=== PATIENT | male | born 2000 | race African-American/Black ===

== ENCOUNTER 2021-02-12 22:21 | Emergency (ER) | payer OTHER ==
[~2021-02-12] VITALS: Ht 190.5 cm; Wt 92.1 kg
== END 2021-02-12 23:45 | disposition home or self-care (01) ==
LOC: ER 22:26
DX: R07.89 Other chest pain (principal); J45.909 Unspecified asthma, uncomplicated
CPT/HCPCS: 71045; 93005

== ENCOUNTER 2021-05-19 17:41 | Emergency (ER) | payer OTHER ==
[~2021-05-19] VITALS: Ht 190.5 cm; Wt 91.6 kg
[2021-05-19] MEDS ORDERED: ACETAMINOPHEN500 MG PO (18:26)
[2021-05-19] MEDS ORDERED: IBUPROFEN IB200 MG PO (18:26)
[2021-05-19] MEDS ORDERED: IBUPROFEN 200 MG TAB PO ONE (18:30)
[2021-05-19] MEDS ORDERED: ACETAMINOPHEN 325 MG TAB PO ONE (18:30)
[2021-05-19] MEDS ORDERED: ACETAMINOPHEN 325 MG TAB ONE (18:36)
[2021-05-19] MEDS ORDERED: IBUPROFEN 600 MG TAB ONE (18:36)
== END 2021-05-19 18:53 | disposition home or self-care (01) ==
LOC: FSED 17:47
DX: M54.2 Cervicalgia (principal); S16.1XXA Strain of muscle, fascia and tendon at neck level, initial encounter; V43.51XA Car driver injured in collision with sport utility vehicle in traffic accident, initial encounter; Y92.488 Other paved roadways as the place of occurrence of the external cause; F17.210 Nicotine dependence, cigarettes, uncomplicated
CPT/HCPCS: 72040; 99283